=== PATIENT | female | born 1960 | race Caucasian/White ===

== ENCOUNTER → 2020-02-24 11:18 | Outpatient (CLI) | payer BC, SELFPAY ==
--- NOTE | ~2020-02-24 | US_ITS ---
US abdomen complete EXAMINATION: US Abdomen Complete INDICATION: Epigastric pain. Nausea. PROCEDURE: Realtime High Resolution abdomen ultrasound. COMPARISON: No prior studies for comparison FINDINGS: Gallbladder within normal limits. No gallstones, pericholecystic fluid, gallbladder wall t hickening or biliary dilatation. Common bile duct measures 3 mm. Liver echotexture within normal limits without focal mass. Pancreas within normal limits. Pancreati c tail is obscured by bowel gas. There are calcifications of the spleen, consistent with granulomas. Renal echotexture is within normal limits bilaterally without hydronephrosis, contour deforming mass or renal stone. Right kidney measures 9.7 cm. Left kidney measures 10.4 cm. Visualized aspects of the aorta and IVC are within normal limits. Portal vein is patent. No sonograph ic Corado's sign indicated by the technologist. IMPRESSION: 1: Unremarkable abdominal ultrasound. Reviewed, dictated and finalized at location A. L MOULDER
== END ==
DX: R10.13 Epigastric pain (principal)
CPT/HCPCS: 76700

== ENCOUNTER → 2020-07-06 15:12 | Outpatient (CLI) | payer BC, SELFPAY ==
--- NOTE | ~2020-07-06 | MM_ITS ---
EXAMINATION: MM screening pete BI w chela HISTORY: Screening mammogram TECHNIQUE: Craniocaudal and mediolateral oblique 3-D tomosynthesis images were obtained and synthetic 2-D images were generated. CAD analysis was submitted and interpreted. COMPARISON: No prior mammogram is available for comparison at this institution. BREAST PARENCHYMAL COMPOSITION: There are scattered areas of fibroglandular density. FINDINGS: There is no evidence of suspicious mass, calcification, or architectural distortion to sugg est malignancy in either breast. There has been no suspicious interval change. IMPRESSION: 1. No mammographic evidence of malignancy. 2. Recommend routine screening mammography in one year. BI-RADS Category 1: Negative Reviewed, dictated and finalized at location A.
== END ==
DX: Z12.31 Encounter for screening mammogram for malignant neoplasm of breast (principal)
CPT/HCPCS: 77063; 77067

== ENCOUNTER → 2021-02-02 07:49 | Outpatient (CLI) | payer BC, SELFPAY ==
--- NOTE | ~2021-02-02 | XR_ITS ---
EXAMINATION: XR hip RT min 2V DATE: 02/02/2021 08:12 INDICATION: Right hip pain. TECHNIQUE: 2 views of right hip were obtained. COMPARISON: None. FINDINGS: Bone alignment is normal. No fracture. There is mild right hip osteoarthritis. IMPRESSION: 1. Mild right hip osteoarthritis. Reviewed, dictated and finalized at location B. T OFFICE MANAGER
== END ==
DX: M16.11 Unilateral primary osteoarthritis, right hip (principal)
CPT/HCPCS: 73502

== ENCOUNTER → 2021-05-03 10:11 | Outpatient (CLI) | payer BC, SELFPAY ==
--- NOTE | ~2021-05-03 | DEXA_ITS ---
Bone Density Report Name: ELIZ PENA Age: 60 Sex: Female Ethnicity: White Date of : 1960 Indication: postmenopausal; screening for osteoporosis; parental hip fracture; asthma or emphysema; Referring Provider: Rochelle TOM Study: Bone densitometry was performed. 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 These spine BMD and T score and Z score measurements are not reflective of the patient's true general bone mineral density. Bone Density: Region BMD T-score Z-score Classification AP Spine (L1-L4) 1.122 0.7 2.2 Normal Femoral Neck (Left) 0.917 0.6 2.0 Normal Total Hip (Left) 1.003 0.5 1.5 Normal Femoral Neck (Right) 0.932 0.8 2.1 Normal Total Hip (Right) 1.015 0.6 1.6 Normal Total Hip Mean 1.009 0.6 1.6 Normal World Health Organization criteria for BMD impression classify patients as: Normal (T-score at or above -1.0), Osteopenia (T-score between -1.0 and -2.5), or Osteoporosis (T-score at or below -2.5). 10-year Fracture Risk: FRAX not reported because: All T-scores for Spine Total, Hip Total, Femoral Neck at or above -1.0 Clinical Information Provided by Patient: Parent has had a hip fracture Has used the following medications: Vitamin D Has the following medical conditions: Asthma or Emphysema Patient maximum height was 61.5 Menopause Age: 54 Drinks caffeinated beverages Onset of menses at age 11 Number of children 1 Impression: The patient has normal bone mass. The patient has risk factors, including: parental hip fracture. 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 These spine BMD and T score and Z score measurements are not reflective of the patient's true general bone mineral density. Discussion: BONE DENSITY IS ABOVE THE MINIMUM DESIRABLE LEVEL AT ALL SKELETAL SITES TESTED. This patient?s bone mineral density is above the minimum desirable level (T-score -1.0 or better) at all sites measured. The patient should follow a healthful lifestyle (good nutrition with adequate calcium and vitamin D, and appropriate weight-bearing exercise). Follow-Up: Consider repeating this study in 5 years or sooner if there is some new clinical indication. Reported by: JUAN PABLO on 05/03/2021 10:38:00 AM. Reviewed, dictated and finalized at location A. [facility]
== END ==
DX: Z78.0 Asymptomatic menopausal state (principal); Z13.820 Encounter for screening for osteoporosis
CPT/HCPCS: 77080

== ENCOUNTER → 2021-10-29 13:17 | Outpatient (CLI) | payer BC, SELFPAY ==
--- NOTE | ~2021-10-29 | MM_ITS ---
EXAMINATION: MM screening pete BI w chela HISTORY: Screening mammogram TECHNIQUE: Craniocaudal and mediolateral oblique 3-D tomosynthesis images were obtained and synthetic 2-D images were generated. CAD analysis was submitted and interpreted. COMPARISON: 07/06/2020 bilateral screening mammogram BREAST PARENCHYMAL COMPOSITION: There are scattered areas of fibroglandular density. FINDINGS: Possible new approximately 3.5 mm opacity in the posterior outer left breast on CC projecti on; diagnostic left mammogram is recommended, with ultrasound if required. Otherwise there is no evidence of suspicious mass, calcification, or architectural distortion to sugg est malignancy in either breast. There has been no other suspicious interval change. IMPRESSION: 1. Possible new 3.5 mm opacity, posterior outer left breast on craniocaudal view 2. Diagnostic left mammogram is recommended, with ultrasound if required BI-RADS Category 0: Incomplete: Needs additional imaging evaluation. Reviewed, dictated and finalized at location A. IMPRESSION: 1. Possible new 3.5 mm opacity, posterior outer left breast on craniocaudal vie w 2. Diagnostic left mammogram is recommended, with ultrasound if required BI-RADS Category 0: Incomplete: Needs additional imaging evaluation.
== END ==
DX: Z12.31 Encounter for screening mammogram for malignant neoplasm of breast (principal); R92.8 Other abnormal and inconclusive findings on diagnostic imaging of breast
CPT/HCPCS: 77063; 77067

== ENCOUNTER → 2021-11-16 08:46 | Outpatient (CLI) | payer BC, SELFPAY ==
--- NOTE | ~2021-11-16 | MM_ITS ---
EXAMINATION: MM diagnostic pete LT w chela HISTORY: Possible new 3.5 mm opacity in the posterior outer left breast on screening craniocaudal vie w of 10/29/2021 TECHNIQUE: Additional 3-D tomosynthesis images of the left breast were performed and synthetic 2-D im ages were generated. CAD analysis was submitted and interpreted. COMPARISON: 10/29/2021 bilateral screening mammogram 07/06/2020 bilateral screening mammogram BREAST PARENCHYMAL COMPOSITION: There are scattered areas of fibroglandular density. FINDINGS: No suspicious mass or architectural distortion, malignant calcification, skin thickening or retraction or significant new or developing density is detected. IMPRESSION: 1. No mammographic evidence of malignancy 2. Routine mammographic screening is recommended BI-RADS Category 1: Negative Reviewed, dictated and finalized at location B.
== END ==
DX: R92.8 Other abnormal and inconclusive findings on diagnostic imaging of breast (principal)
CPT/HCPCS: 77061; 77065; G0279

== ENCOUNTER → 2022-10-31 12:47 | Outpatient (CLI) | payer BC, SELFPAY ==
--- NOTE | ~2022-10-31 | MM_ITS ---
EXAMINATION: MM screening pete BI w chela HISTORY: Screening mammogram TECHNIQUE: Craniocaudal and mediolateral oblique 3-D tomosynthesis images were obtained and synthetic 2-D images were generated. CAD analysis was submitted and interpreted. COMPARISON: 11/16/2021 diagnostic left mammogram 10/29/2021, 07/06/2020 bilateral screening mammogram examinations BREAST PARENCHYMAL COMPOSITION: There are scattered areas of fibroglandular density. FINDINGS: There is no evidence of suspicious mass, calcification, or architectural distortion to sugg est malignancy in either breast. There has been no suspicious interval change. IMPRESSION: 1. No mammographic evidence of malignancy. 2. Recommend routine screening mammography in one year. BI-RADS Category 1: Negative Reviewed, dictated and finalized at location A.
== END ==
PROVIDERS: PCP Obstetrics & Gynecology; Visit Provider Obstetrics & Gynecology
DX: Z12.31 Encounter for screening mammogram for malignant neoplasm of breast (principal)
CPT/HCPCS: 77063; 77067

== ENCOUNTER 2024-01-24 13:28 | Outpatient (CLI) | payer BC, SELFPAY ==
--- NOTE | ~2024-01-24 | MM_ITS ---
EXAMINATION: MM screening [facility] BI w chela HISTORY: Screening mammogram TECHNIQUE: Craniocaudal and mediolateral oblique 3-D tomosynthesis images were obtained and synthetic 2-D images were generated. CAD analysis was submitted and interpreted. COMPARISON: 10/31/2022, 10/29/2021, 07/06/2020 BREAST PARENCHYMAL COMPOSITION:Not Dense. There are scattered areas of fibroglandular density. FINDINGS: No suspicious mass, calcification, or architectural distortion are identified in either grady ast to suggest malignancy. There has been no suspicious interval change. IMPRESSION: No mammographic evidence of malignancy. Recommend routine screening mammography in one year. BI-RADS Category 1: Negative Reviewed, dictated and finalized at location . R FOLDER
== END 2024-01-24 13:29 | disposition home or self-care (01) ==
LOC: MICIMG 13:30
PROVIDERS: PCP Obstetrics & Gynecology; Visit Provider Obstetrics & Gynecology
DX: Z12.31 Encounter for screening mammogram for malignant neoplasm of breast (principal)
CPT/HCPCS: 77063; 77067

== ENCOUNTER 2024-08-22 07:52 | Outpatient (CLI) | payer BC, SELFPAY ==
--- NOTE | ~2024-08-22 | MM_ITS ---
EXAMINATION: MM diagnostic pete LT w chela HISTORY: Left breast pain TECHNIQUE: Additional 3-D tomosynthesis images of the left breast were performed and synthetic 2-D im ages were generated. CAD analysis was submitted and interpreted. COMPARISON: Comparison to multiple prior studies sequentially, with oldest reviewed study dated 07/06. BREAST PARENCHYMAL COMPOSITION: Not dense: There are scattered areas of fibroglandular density. FINDINGS: There are no suspicious masses, calcifications or architectural distortion in the left rena st to suggest malignancy. IMPRESSION: 1. No evidence for malignancy in the left breast. 2. Routine yearly screening mammogram and regular clinical breast examination are recommended. BI-RADS Category 1: Negative Reviewed, dictated and finalized at location [] IMPRESSION: 1. No evidence for malignancy in the left breast. 2. Routine yearly screening mammogram and regular clinical breast examination a re recommended. BI-RADS Category 1: Negative
== END 2024-08-22 07:53 | disposition home or self-care (01) ==
LOC: MICIMG 07:52
PROVIDERS: PCP Obstetrics & Gynecology; Visit Provider Nurse Practitioner Family
DX: R92.8 Other abnormal and inconclusive findings on diagnostic imaging of breast (principal)
CPT/HCPCS: 77061; 77065; G0279

== ENCOUNTER 2024-12-24 09:51 | Outpatient (CLI) | payer MEDICARE, BC, SELFPAY ==
--- NOTE | ~2024-12-24 | DEXA_ITS ---
Bone Density Report Name: ELIZ PENA Age: 64 Sex: Female Ethnicity: White Date of : 1960 Indication: postmenopausal; screening for osteoporosis; parental hip fracture; height loss; asthma or emphysema; Referring Provider: THUY, ASHLEY Mendoza Study: Bone densitometry was performed. Exam Date: December 24, 2024 Accession number: [id number] Bone Density: Region BMD T-score Z-score Classification AP Spine(L2, L3, L4) 1.146 0.6 2.4 Normal Femoral Neck (Left) 0.910 0.5 2.1 Normal Total Hip (Left) 0.975 0.3 1.5 Normal Femoral Neck (Right) 0.917 0.6 2.1 Normal Total Hip (Right) 0.985 0.4 1.6 Normal Total Hip Mean 0.980 0.4 1.6 Normal World Health Organization criteria for BMD impression classify patients as: Normal (T-score at or above -1.0), Osteopenia (T-score between -1.0 and -2.5), or Osteoporosis (T-score at or below -2.5). 10-year Fracture Risk: FRAX not reported because: All T-scores for Spine Total, Hip Total, Femoral Neck at or above -1.0 Previous Exams: -- Region Exam Age BMD T-score BMD Change BMD Change Date g/cm2 vs Baseline vs Previous -- AP Spine (L2-L4) 12/24/2024 64 1.146 0.6 -4.6%* -4.6%* 05/03/2021 60 1.200 1.1 Total Hip(Left) 12/24/2024 64 0.975 0.3 -2.8%* -2.8%* 05/03/2021 60 1.003 0.5 Total Hip(Right) 12/24/2024 64 0.985 0.4 -2.9%* -2.9%* 05/03/2021 60 1.015 0.6 -- *Denotes significance at 95% confidence level, LSC for AP Spine = 0.022 g/cm2, LSC for Total Hip = 0.027 g/cm2 Clinical Information Provided by Patient: Parent has had a hip fracture Has used the following medications: Vitamin D Has the following medical conditions: Asthma or Emphysema Patient maximum height was 62 Menopause Age: 54 Drinks caffeinated beverages Onset of menses at age 11 Number of children 1 Impression: The patient has normal bone mass. The patient has risk factors, including: parental hip fracture. The BMD for the AP Spine (L2-L4) decreased, changing by -4.6% since the last DXA exam. The BMD for the Total Hip(Left) decreased, changing by -2.8% since the last DXA exam. The BMD for the Total Hip(Right) decreased, changing by -2.9% since the last DXA exam. Discussion: BONE DENSITY IS ABOVE THE MINIMUM DESIRABLE LEVEL AT ALL SKELETAL SITES TESTED. This patient?s bone mineral density is above the minimum desirable level (T-score -1.0 or better) at all sites measured. The patient should follow a healthful lifestyle (good nutrition with adequate calcium and vitamin D, and appropriate weight-bearing exercise). Follow-Up: Consider repeating this study in 3 to 4 years to reassess this patient's status, or sooner if there is some new clinical indication. Reported by: GILBERTO on 12/24/2024 10:23:00 AM. Reviewed, dictated and finalized at location A.
== END 2024-12-24 09:52 | disposition home or self-care (01) ==
PROVIDERS: PCP Nurse Practitioner Family; Visit Provider Nurse Practitioner Family
DX: Z13.820 Encounter for screening for osteoporosis (principal); Z78.0 Asymptomatic menopausal state
CPT/HCPCS: 77080

== ENCOUNTER 2025-01-27 11:20 | Outpatient (CLI) | payer MEDICARE, BC, SELFPAY ==
--- NOTE | ~2025-01-27 | MM_ITS ---
EXAMINATION: MM screening pete BI w chela HISTORY: Screening TECHNIQUE: Craniocaudal and mediolateral oblique 3-D tomosynthesis images were obtained and synthetic 2-D images were generated. CAD analysis was submitted and interpreted. COMPARISON: Comparison to multiple prior studies sequentially, with oldest reviewed study dated , 07/06/2020 BREAST PARENCHYMAL COMPOSITION: There are scattered areas of fibroglandular density. FINDINGS: There is no evidence of suspicious mass, calcification, or architectural distortion to suggest malignancy in either breast. IMPRESSION: 1. No mammographic evidence of malignancy. 2. Recommend routine screening mammography in one year. BI-RADS Category 1: Negative Reviewed, dictated and finalized at location B. MATION TENDER
== END 2025-01-27 11:21 | disposition home or self-care (01) ==
LOC: MICIMG 11:21
PROVIDERS: PCP Nurse Practitioner Family; Visit Provider Obstetrics & Gynecology
DX: Z12.31 Encounter for screening mammogram for malignant neoplasm of breast (principal)
CPT/HCPCS: 77063; 77067